=== PATIENT | female | born 1975 | race Hispanic/Latino ===

== ENCOUNTER 2023-10-20 20:15 | Emergency (ER) | payer OTHER, SELFPAY ==
[2023-10-20 20:26] VITALS: BP 191/91; PULSE 74; RESP 18; TEMP 36.9; O2SAT 100; BMI 25.0
[2023-10-20 20:37] VITALS: PULSE 74; O2SAT 99
[2023-10-20 20:38] VITALS: BP 176/100; PULSE 68; O2SAT 98
[2023-10-20 21:00] VITALS: BP 183/98; PULSE 71; O2SAT 99
[2023-10-20] MEDS: predniSONE 20 MG TABLET 60 MG PO (21:07)
[2023-10-20] MEDS: OXYCODONE IR 5 MG TABLET PO (21:07)
--- NOTE | 2023-10-21 04:08 | ED.BACK ---
HPI - Back Pain/Injury General Chief Complaint: Back Pain/Injury Stated Complaint: Lower back pain, chronic Time Seen by Provider: 10/20/23 20:48 Source: patient and family History of Present Illness HPI Narrative: 48-year-old female with low back pain not associated with trauma. Has a history of back pain. Usually takes methocarbamol for this, [place] of [place] and forgot her methocarbamol. Does not have fever does not have problems with urination does not have significant comorbidities. Related Data Previous Rx's Medication Instructions Recorded methocarbamol 500 mg tablet 500 mg PO BID PRN back pain #7 tabs 10/20/23 methylprednisolone 4 mg tablets in See Rx Instructions PO .COMPLEX 10/20/23 a dose pack (Methylpred DP) #21 ea oxycodone 5 mg tablet 5 mg PO Q6H PRN pain #7 tabs 10/20/23 Allergies Allergy/AdvReac Type Severity Reaction Status Date / Time No Known Drug Allergies Allergy Verified 10/20/23 20:26 Patient History Social History Smoking Status: Never smoker Smoking Status: Never smoker alcohol intake frequency: holidays/special occasions only Substance Use Type: does not use Exam Initial Vital Signs Initial Vital Signs: Vital Signs Temperature 98.5 F 10/20/23 20:26 Pulse Rate 74 10/20/23 20:26 Respiratory Rate 18 10/20/23 20:26 Blood Pressure 191/91 H 10/20/23 20:26 Pulse Oximetry 100 10/20/23 20:26 Oxygen Delivery Method Room Air 10/20/23 20:26 Const General: No acute distress HENMT Head: normocephalic and atraumatic Neck Neck: supple Resp Effort & Inspection: normal respiratory effort Cardio Rate: regular rate Back/Spine/Pelvis Back: back tenderness (Diffuse tenderness in the lower lumbar spine without step-off there is some) Skin General: no rashes or lesions noted Neuro Motor: strength 5/5 throughout Sensory Exam: no sensory deficits noted DTR's: Rt Patellar: 0 and Lt Patellar: 0 Course Orders Ordered: Discontinued Medications Oxycodone HCl (Oxycodone Ir 5 Mg Tablet) 5 mg PO NOW ONE Stop: 10/20/23 21:02 Last Admin: 10/20/23 21:07 Dose: 5 mg Documented By: SHAINA Prednisone (Prednisone 20 Mg Tablet) 60 mg PO NOW ONE Stop: 10/20/23 21:02 Last Admin: 10/20/23 21:07 Dose: 60 mg Documented By: SHAINA Vital Signs Vital signs: Vital Signs - 8 hr 10/20/23 20:26 10/20/23 20:37 10/20/23 20:38 Temperature 98.5 F Pulse Rate 74 74 Respiratory Rate 18 Blood Pressure 191/91 H 176/100 H Pulse Oximetry 100 99 Oxygen Delivery Method Room Air 10/20/23 20:38 10/20/23 21:00 10/20/23 21:00 Temperature Pulse Rate 68 71 Respiratory Rate Blood Pressure 183/98 H Pulse Oximetry 98 99 Oxygen Delivery Method MDM - Back Pain/Injury MDM Narrative Medical decision making narrative: 48-year-old female with an exacerbation of her chronic back pain. No red flag features or associated, she was treated with prednisone 5 mg of oxycodone and she was started on a Medrol Dosepak. Did write a prescription for a very small number of oxycodone she is to continue with [id number] medications and I also wrote a prescription for a few methocarbamol. Discharge Plan Departure Patient Disposition: Home Clinical Impression: Acute low back pain Instructions: DI for Back Spasm Activity Restrictions/Additional Instructions: Activity as tolerated, may continue to use acetaminophen as needed for pain. Return to the emergency department for fevers or problems with bowel or bladder control. Prescriptions: New oxycodone 5 mg tablet 5 mg PO Q6H PRN (Reason: pain) Qty: 7 0RF methylprednisolone [Methylpred DP] 4 mg tablets,dose pack See Rx Instructions .ROUTE .COMPLEX Qty: 21 0RF Rx Instructions: orally per package directions methocarbamol 500 mg tablet 500 mg PO BID MDD 1000 mg PRN (Reason: back pain) Qty: 7 0RF Stand Alone Forms: Patient Portal/API
== END 2023-10-20 21:30 | disposition home or self-care (01) ==
PROVIDERS: Emergency Provider Emergency Medicine
DX: M54.50 Low back pain, unspecified (principal)
CPT/HCPCS: 99283